=== PATIENT | male | born 1975 ===

== ENCOUNTER 2020-04-10 08:46 | Day surgery (SDC) | payer BC ==
[2020-04-10] MEDS ORDERED: Ondansetron PF 4 MG/2 ML Vial ONE ×3 (09:02→11:12)
[2020-04-10] MEDS ORDERED: Morphine 4 MG/ML VIAL ONE (09:02)
[2020-04-10 09:27] LABS: #Lymphocytes 0.9 thou/uL (1.20-3.40); #Monocytes 0.5 thou/uL (0.11-0.59); #Neutrophils 13.2 thou/uL (1.40-6.50); %Basophils 0.1 % (0.0-1.0); %Lymphocytes 6.2 % (21.0-51.0); %Monocytes 3.6 % (0.0-10.0); Hemoglobin 15.8 g/dL (14.0-18.0); Mean Corpuscular HGB CONC 35.4 g/dL (32.0-36.0); Mean Corpuscular Hemoglobin 31.2 pg (27.0-31.0); Platelet Count 253 thou/uL (130-400); RBC Distribution Width 10.9 % (11.5-14.5); Red Blood Cell (RBC) Count 5.08 mill/uL (4.70-6.10); White Blood Cell (WBC) Count 14.7 thou/uL (4.8-10.8)
[2020-04-10 09:58] LABS: ALT (SGPT) 19 U/L (8-55); AST (SGOT) 20 U/L (5-34); Albumin 4.9 g/dL (3.5-5.0); Alkaline Phosphatase 80 U/L (40-110); Anion Gap 18 mmol/L (10-20); BUN (Urea Nitrogen) 18 mg/dL (8.9-20.6); Calc. Creatinine Clearance 0 mL/min (70-130); Calcium 9.5 mg/dL (7.8-10.44); Carbon Dioxide 19 mmol/L (22-29); Chloride 99 mmol/L (98-107); Estimated GFR-MDRD 85; Glucose 188 mg/dL (70-105); Lipase 60 U/L (8-78); Potassium 4.1 mmol/L (3.5-5.1); Protein, Total 7.9 g/dL (6.0-8.3); Sodium 132 mmol/L (136-145)
--- NOTE | 2020-04-10 10:03 | CT ---
CT Abdomen Pelvis W Con: 04/10/2020 9:01 AM CLINICAL INFORMATION: Right lower quadrant abdominal pain COMPARISON: None. TECHNIQUE: Multiple contiguous axial images were obtained and a CT of the abdomen and pelvis with IV contrast. C oronal and sagittal reformats were performed. FINDINGS: Lower Chest: within normal limits. Abdomen: Liver: within normal limits. Bile Ducts: Normal caliber. Gallbladder: No calcified gallstones. Normal caliber wall. Pancreas: within normal limits. Spleen: within normal limits. Adrenals: within normal limits. Kidneys: Subcentimeter hypodensities are seen in both kidneys which are too small to definitely lv cterize but likely represent cysts. Pelvis: Reproductive Organs: No pelvic masses. Ureters: within normal limits. Bladder: within normal limits. Peritoneum: No ascites or free air, no fluid collection. Bowel: Normal caliber. The appendix is enlarged measuring 11 mm with surrounding stranding changes co nsistent with acute appendicitis. Appendicoliths are seen within the appendix. Mesentery and Retroperitoneum: No enlarged mesenteric or retroperitoneal lymph nodes. Vessels: Normal. Abdominal Wall: within normal limits. Bones: Within normal limits IMPRESSION: Acute appendicitis
[2020-04-10] MEDS ORDERED: Piperacillin/Tazobactam 3.375 GM VIAL ONE (10:08)
[2020-04-10] MEDS ORDERED: Sodium Chloride 0.9% 100 ML ONE (10:08)
[2020-04-10] MEDS ORDERED: Succinylcholine Chloride 20 MG/ML 10 ml SYRINGE FS ONE (10:36)
[2020-04-10] MEDS ORDERED: Ketorolac Tromethamine 30 MG/ML VIAL ONE (10:36)
[2020-04-10] MEDS ORDERED: Rocuronium Bromide 10 MG/ML (10ML VIAL) ONE (10:36)
[2020-04-10] MEDS ORDERED: Dexamethasone 20 MG/5 ML VIAL ONE (10:36)
[2020-04-10] MEDS ORDERED: Glycopyrrolate 0.2 MG/ML 5 ML SYRINGE ONE (10:36)
[2020-04-10] MEDS ORDERED: PROPOFOL 200 MG/20 ML VIAL ONE (10:36)
[2020-04-10] MEDS ORDERED: Lidocaine 1% PF 5 ML VIAL ONE (10:36)
[2020-04-10] MEDS ORDERED: Bupivacaine 0.25% HCL 30 ML VIAL ONE (11:00)
[2020-04-10] MEDS ORDERED: EPINEPHrine 1 MG/ML AMP ONE (11:00)
--- NOTE | 2020-04-10 11:13 | PDOC.GSCN ---
Surgery Consult: HPI - Consult details Date: 04/10/20 Time: 11:13 Reason for consult: appendicitis History of present illness: 04/10/20 11:13 44yo male presents with 36hr history of abdominal pain. The pain started as generalized in the mid abdomen and settled in the RLQ and is described as "sharp ". Associated with nausea, vomiting, and diarrhea (although he was undergoing a "detox" with magnesium at the time). Denies fevers or chills. Presented to ER where CT demonstrated a dilated appendix consistent with acute appendicitis. Surgery Consult: ROS - Review of Systems All systems: 10 systems reviewed and no additional complaints unless stated below. Surgery Consult: [facility] Past Medical History: Diabetes Mellitus Past Surgical History: Left meniscus repair - Past Family History Pertinent family history: Maternal DM - Past Social History Smoking Status: Never smoker Alcohol Use: occasional Drug Use History: none Living Situation: Surgery Consult: Exam - Physical Exam General: no distress, moderate pain ENT: normal mucosa, normal nares Neck: trachea midline Respiratory: normal expansion, normal respiratory effort Abdomen: soft, tender Integumentary: no growths, no rash Neurologic: normal coordination, normal sensation Musculoskeletal: normal gait Psychiatric: oriented to person, oriented to place, speech is normal Surgery Consult: Meds - Medications Medications: Glipizide - Allergies Allergies/Adverse Reactions: Allergies Allergy/AdvReac Type Severity Reaction Status Date / Time No Known Allergies Allergy Unverified 04/10/20 11:20 Surgery Consult: Results - Labs Result Diagrams: 04/10/20 09:17 04/10/20 09:17 Lab results: Laboratory Results WBC 14.7 thou/uL (4.8-10.8) H 04/10/20 09:17 RBC 5.08 mill/uL (4.70-6.10) 04/10/20 09:17 Hgb 15.8 g/dL (14.0-18.0) 04/10/20 09:17 Hct 44.7 % (42.0-52.0) 04/10/20 09:17 MCV 88.0 fL (78.0-98.0) 04/10/20 09:17 MCH 31.2 pg (27.0-31.0) H 04/10/20 09:17 MCHC 35.4 g/dL (32.0-36.0) 04/10/20 09:17 RDW 10.9 % (11.5-14.5) L 04/10/20 09:17 Plt Count 253 thou/uL (130-400) 04/10/20 09:17 MPV 8.0 fL (7.4-10.4) 04/10/20 09:17 Neutrophils % 90.0 % (42.0-75.0) H 04/10/20 09:17 Lymphocytes % 6.2 % (21.0-51.0) L 04/10/20 09:17 Monocytes % 3.6 % (0.0-10.0) 04/10/20 09:17 Eosinophils % 0.0 % (0.0-10.0) 04/10/20 09:17 Basophils % 0.1 % (0.0-1.0) 04/10/20 09:17 Neutrophils # 13.2 thou/uL (1.40-6.50) H 04/10/20 09:17 Lymphocytes # 0.9 thou/uL (1.20-3.40) L 04/10/20 09:17 Monocytes # 0.5 thou/uL (0.11-0.59) 04/10/20 09:17 Eosinophils # 0.0 thou/uL (0.0-0.7) 04/10/20 09:17 Basophils # 0.0 thou/uL (0.0-0.2) 04/10/20 09:17 Sodium 132 mmol/L (136-145) L 04/10/20 09:17 Potassium 4.1 mmol/L (3.5-5.1) 04/10/20 09:17 Chloride 99 mmol/L (98-107) 04/10/20 09:17 Carbon Dioxide 19 mmol/L (22-29) L 04/10/20 09:17 Anion Gap 18 mmol/L (10-20) 04/10/20 09:17 BUN 18 mg/dL (8.9-20.6) 04/10/20 09:17 Creatinine 0.96 mg/dL (0.7-1.3) 04/10/20 09:17 Estimated GFR (MDRD) 85 04/10/20 09:17 Glucose 188 mg/dL (70-105) H 04/10/20 09:17 Calcium 9.5 mg/dL (7.8-10.44) 04/10/20 09:17 Total Bilirubin 1.0 mg/dL (0.2-1.2) 04/10/20 09:17 AST 20 U/L (5-34) 04/10/20 09:17 ALT 19 U/L (8-55) 04/10/20 09:17 Alkaline Phosphatase 80 U/L (40-110) 04/10/20 09:17 Serum Total Protein 7.9 g/dL (6.0-8.3) 04/10/20 09:17 Albumin 4.9 g/dL (3.5-5.0) 04/10/20 09:17 Globulin 3.0 g/dL (2.4-3.5) 04/10/20 09:17 Albumin/Globulin Ratio 1.6 g/dL (1.2-2.2) 04/10/20 09:17 Lipase 60 U/L (8-78) 04/10/20 09:17 - Radiology Interpretation CT scan - abdomen Additional comments: CT with dilated appendix at 11mm and no evidence of abscess or perforatio. Surgery Consult: A/P - Problem (1) Acute appendicitis Current Visit: Yes Code(s): K35.80 - UNSPECIFIED ACUTE APPENDICITIS Status: Acute - Plan Plan: 44yo male with uncomplicated appendicitis. The natural history of acute appendicitis and his managment options to include antibiotic therapy and surgical therapy were discussed. Plan for laparoscopic appendectomy today. The relative risks and benefits of the procedure were discussed in the detail with the patient, specifically the risk of abscess, damage to adjacent structures, and staple failure. Informed consent was obtained.
[2020-04-10] MEDS ORDERED: Promethazine HCl 25 MG/ML VIAL ONE (11:37)
[2020-04-10] MEDS ORDERED: Fentanyl 100 MCG/2 ML VIAL ONE (11:53)
[2020-04-10] MEDS ORDERED: Iopamidol-370 76% 500 ML 1 ML ONE (12:01)
--- NOTE | 2020-04-10 13:06 | PDOC.OP ---
Operative Note - Operative Note Operative Note: DATE OF SURGERY: April 10, 2020 SURGEON: Oscar Bales MD PREOPERATIVE DIAGNOSIS: Acute appendicitis without abscess POSTOPERATIVE DIAGNOSIS: Acute appendicitis without abscess PROCEDURE: Laparoscopic appendectomy INDICATIONS: 44-year-old male with a 36-hour history of abdominal pain associated with nausea , vomiting, and diarrhea. Their work-up was consistent with acute appendicitis. The relative risks and benefits of laparoscopic appendectomy were discussed in detail with the patient, specifically addressing the risk of abscess formation, staple line leak, and damage to adjacent structures. Informed consent was obtained. PROCEDURE IN DETAIL: The patient was brought to the operating room and positioned supine on the operating room table. After induction of general, endotracheal anesthesia, the patient was prepared and draped in the usual fashion. Prior to beginning the procedure, a complete timeout was performed with all members of the operative team being present and in agreement. Access to the abdomen was obtained in the left upper quadrant using an optical trocar under direct visualization. The abdomen was insufflated, and additional trochars placed under direct visualization. The abdominal cavity was examined and inflammation was noted in the right lower quadrant. The appendix was located and surrounding adhesions divided to allow medial mobilization and retraction toward the abdominal wall. A window was created between the base of the appendix and the mesoappendix using blunt dissection and minimal electrocautery. The base of the appendix was identified by the confluence of the tinea. The appendix was divided using a single fire of a blue staple load. The mesoappendix was fired using a single white staple load. The specimen was placed in a retrieval bag and the abdominal cavity examined with hemostasis achieved. The bag was removed from the abdominal cavity, and the specimen passed off for pathological examination. The 12 mm trocar site fascia was closed using a 0-Vicryl tie utilizing a suture passer. The skin was closed with 4-0 Monocryl suture and dressed with skin adhesive dressing. At the conclusion of the case, all sponge and instrument counts were correct. ESTIMATED BLOOD LOSS: Minimal COMPLICATIONS: None INTRAOPERATIVE BLOOD TRANSFUSIONS: None GRAFTS / IMPLANTS: None SPECIMENS: Appendix DISPOSITION: The patient was transported to the postoperative recovery unit in good condition , to be discharged home when criteria are met.
[2020-04-10] MEDS ORDERED: Acetaminophen/Codeine 30-300mg Tablet PO PRN (13:12)
== END 2020-04-10 15:19 | disposition home or self-care (01) ==
LOC: ERS 08:46 → SDC 11:17
PROVIDERS: ATTEND Surgery
PROC: 0DTJ4ZZ Resection of Appendix, Percutaneous Endoscopic Approach (ICD-10-PCS; principal; 2020-04-10)
DX: K35.80 Unspecified acute appendicitis (principal); E11.9 Type 2 diabetes mellitus without complications; Z79.84 Long term (current) use of oral hypoglycemic drugs
CPT/HCPCS: 74177; 80053; 83690; 85025; 88304; J0171; J1100; J1885; J2270; J2405; J2543; J2550; J2704; J3010; J3490; Q9967; S0020